=== PATIENT | male | born 1960 | race Caucasian/White ===

== ENCOUNTER → 2018-07-11 | Outpatient (CLI) | payer OTHER | LOC: FIMAGING 15:37 | PROVIDERS: ATTEND Internal Medicine | DX: N20.0 Calculus of kidney (principal) ==

== ENCOUNTER 2018-12-30 18:35 | Inpatient (IN) | payer OTHER | END 2019-01-01 13:45 | disposition home or self-care (01) | LOC: F2W 20:35 ==